=== PATIENT | female | born 1935 | race Caucasian/White ===

== ENCOUNTER 2023-03-07 22:56 | Observation (INO) | payer MEDICARE ==
[2023-03-07 23:49] LABS: #Eosinphils 0.1 10x3/uL (0.0-0.5); #Monocytes 0.9 10x3/uL (0.0-1.1); #Neutrophils 5.5 10x3/uL (1.5-8.4); %Basophils 0.4 % (0.0-2.0); %Eosinophils 1.2 % (0.0-6.0); %Lymphocytes 23.2 % (18.0-47.0); %Monocytes 10.7 % (0.0-10.0); %Neutrophils 64.3 % (40.0-75.0); Hematocrit 36.6 % (34.9-44.5); Hemoglobin 12.2 g/dL (12.0-15.5); Mean Corpuscular HGB CONC 33.3 g/dL (32.0-36.0); Mean Corpuscular Hemoglobin 29.8 pg (27.0-33.0); Mean Corpuscular Volume 89.3 fl (81.6-98.3); Mean Platelet Volume 9.8 fl (7.4-10.4); Platelet Count 255 10x3/uL (150-450); RBC Distribution Width 13.8 % (11.5-14.5); White Blood Cell (WBC) Count 8.5 10x3/uL (3.5-10.5)
[2023-03-07 23:55] LABS: Anion Gap 15 mmol/L (10-20); BUN (Urea Nitrogen) 19 mg/dL (9.8-20.1); Calc. Creatinine Clearance 0 mL/min (70-130); Carbon Dioxide 22 mmol/L (23-31); Chloride 104 mmol/L (98-107); Estimated GFR 74; Potassium 3.9 mmol/L (3.5-5.1); Sodium 137 mmol/L (136-145)
[2023-03-07 23:56] LABS: ALT (SGPT) 9 U/L (8-55); AST (SGOT) 19 U/L (5-34); Albumin 3.9 g/dL (3.4-4.8); Alkaline Phosphatase 64 U/L (40-110); Bilirubin, Total 0.4 mg/dL (0.2-1.2); Calcium 8.9 mg/dL (7.8-10.44); Globulin 3.6 g/dL (2.4-3.5); Glucose 102 mg/dL (83-110); Protein, Total 7.5 g/dL (5.8-8.1)
[2023-03-08 00:03] LABS: Troponin I Less than 0.010 ng/mL (< 0.028)
[2023-03-08 00:41] LABS: Clarity Clear (Clear); Glucose, Urine (Dipstick) Normal (Negative); Ketone, Urine Negative (Negative); Leukocyte Negative (Negative); Nitrite Negative (Negative); Protein, Urine (Dipstick) Negative (Neg-Trace)
[2023-03-08 00:42] LABS: Bilirubin Neg (Negative); Blood, Urine Negative (Negative); Urobilinogen Normal mg/dL (Less than 2)
[2023-03-08 00:51] LABS: Bacteria/HPF None Seen HPF (None Seen); CAUTI Indications for Culture Dysuria,urgency,freq; RBC/HPF None Seen HPF (0-3); Squamous Epithelial None Seen HPF (0-3); Urine Culture Reflex No No; WBC/HPF None Seen HPF (0-3)
[2023-03-08] MEDS ORDERED: Acetaminophen 325 MG TAB PO PRN (04:06)
[2023-03-08 04:44] LABS: Troponin I Less than 0.010 ng/mL (< 0.028)
[2023-03-08 05:02] VITALS: BMI 23.0
[2023-03-08 06:03] LABS: Anion Gap 15 mmol/L (10-20); BUN (Urea Nitrogen) 15 mg/dL (9.8-20.1); Calc. Creatinine Clearance 52 mL/min (70-130); Calcium 8.8 mg/dL (7.8-10.44); Carbon Dioxide 21 mmol/L (23-31); Chloride 109 mmol/L (98-107); Estimated GFR 81; Glucose 102 mg/dL (83-110); Magnesium 1.7 mg/dL (1.6-2.6); Potassium 3.6 mmol/L (3.5-5.1); Sodium 141 mmol/L (136-145)
[2023-03-08 06:38] LABS: #Eosinphils 0.1 10x3/uL (0.0-0.5); #Monocytes 0.8 10x3/uL (0.0-1.1); #Neutrophils 3.5 10x3/uL (1.5-8.4); %Basophils 0.3 % (0.0-2.0); %Eosinophils 1.3 % (0.0-6.0); %Lymphocytes 29.1 % (18.0-47.0); %Monocytes 12.5 % (0.0-10.0); %Neutrophils 56.6 % (40.0-75.0); Hematocrit 34.4 % (34.9-44.5); Hemoglobin 11.5 g/dL (12.0-15.5); Mean Corpuscular HGB CONC 33.4 g/dL (32.0-36.0); Mean Corpuscular Volume 89.8 fl (81.6-98.3); Mean Platelet Volume 9.5 fl (7.4-10.4); Platelet Count 241 10x3/uL (150-450); RBC Distribution Width 13.9 % (11.5-14.5); Red Blood Cell (RBC) Count 3.83 10x6/uL (3.90-5.03); White Blood Cell (WBC) Count 6.2 10x3/uL (3.5-10.5)
[2023-03-08 06:59] LABS: Troponin I Less than 0.010 ng/mL (< 0.028)
[2023-03-08] MEDS ORDERED: Carvedilol 3.125 MG TAB PO SCH (07:30)
[2023-03-08] MEDS ORDERED: FLU VACC QS2023(65UP)/MF59C/PF 60 MCG/0.5 ML SYRINGE IM ONE (09:00)
[2023-03-08] MEDS: cloNIDine 0.1mg/24 Hour PATCH TD SCH ×3 (09:57→10:34)
[2023-03-08] MEDS: Aspirin 81 mg Enteric Coated Tablet PO SCH (09:59)
[2023-03-08] MEDS: Timolol 0.25% Ophth Soln 5 ml Bottle L EYE SCH (09:59)
[2023-03-08] MEDS: Calcium Carbonate 600 MG + Vit D TAB PO SCH (10:00)
[2023-03-08] MEDS: Multivit, Therapeutic 1 TAB PO SCH (10:00)
[2023-03-08] MEDS: Lisinopril 5 MG TAB PO SCH ×2 (10:00→10:06)
[2023-03-08] MEDS: Vitamin E 400 UNITS CAP PO SCH (10:01)
[2023-03-08] MEDS ORDERED: Valsartan 80 MG TAB PO SCH (10:15)
[2023-03-08] MEDS ORDERED: Carvedilol 6.25 MG TAB PO SCH (10:15)
[2023-03-08] MEDS: Carvedilol 6.25 MG TAB PO SCH (19:05)
[2023-03-08] MEDS ORDERED: Lorazepam 0.5 MG TAB PO PRN (19:08)
[2023-03-08] MEDS ORDERED: Rosuvastatin 10 MG TAB PO SCH (21:00)
[2023-03-08] MEDS ORDERED: dilTIAZem CD 120 MG CAP PO SCH (21:00)
[2023-03-08] MEDS ORDERED: Montelukast Sodium 10 mg Tablet PO SCH (21:00)
[2023-03-09] MEDS: Timolol 0.25% Ophth Soln 5 ml Bottle L EYE SCH (07:56)
[2023-03-09] MEDS: Calcium Carbonate 600 MG + Vit D TAB PO SCH (08:07)
[2023-03-09] MEDS: Vitamin E 400 UNITS CAP PO SCH (08:07)
[2023-03-09] MEDS: Multivit, Therapeutic 1 TAB PO SCH (08:07)
[2023-03-09] MEDS: Aspirin 81 mg Enteric Coated Tablet PO SCH (08:08)
[2023-03-09] MEDS: Carvedilol 6.25 MG TAB PO SCH ×2 (08:08→16:55)
[2023-03-09] MEDS ORDERED: Valsartan 80 MG TAB PO SCH (09:00)
[2023-03-09 17:35] VITALS: BP 155/77; TEMP 98.5
[2023-03-13 13:37] LABS: Cortisol,Free Ur 14 ug/L (Undefined); Cortisol,Ur Free 24 Hr 26 ug/24 hr (3-49)
== END 2023-03-09 17:35 | disposition home health service (06) ==
LOC: CSHERS 22:56 → CSHTELE 03-08 01:30
PROVIDERS: ADMIT Family Medicine; ATTEND Emergency Medicine
PROC: B24BZZ4 Ultrasonography of Heart with Aorta, Transesophageal (ICD-10-PCS; principal; 2023-03-08)
DX: I16.0 Hypertensive urgency (principal); R07.9 Chest pain, unspecified; I25.10 Atherosclerotic heart disease of native coronary artery without angina pectoris; E78.5 Hyperlipidemia, unspecified; K21.9 Gastro-esophageal reflux disease without esophagitis; M19.90 Unspecified osteoarthritis, unspecified site; D64.9 Anemia, unspecified; M35.3 Polymyalgia rheumatica; M48.00 Spinal stenosis, site unspecified; H40.9 Unspecified glaucoma; Z90.49 Acquired absence of other specified parts of digestive tract; Z90.710 Acquired absence of both cervix and uterus; Z98.890 Other specified postprocedural states; Z90.721 Acquired absence of ovaries, unilateral; Z95.5 Presence of coronary angioplasty implant and graft; Z88.0 Allergy status to penicillin; Z88.1 Allergy status to other antibiotic agents; Z88.8 Allergy status to other drugs, medicaments and biological substances; Z88.5 Allergy status to narcotic agent; Z79.899 Other long term (current) drug therapy
CPT/HCPCS: 70450; 71045; 76770; 80048; 80053; 81001; 82088; 82384; 82530; 82533; 83735; 83835; 84443; 84484 ×3; 85025 ×2; 93005 ×2; 93306; 96372 ×2; 97530; 97535; 99285; G0378 ×3; 36415; 93010; J1650